=== PATIENT | male | born 1980 | race Asian ===

== ENCOUNTER 2018-09-10 01:10 | Emergency (ER) | payer OTHER ==
[~2018-09-10] VITALS: Ht 172.7 cm; Wt 68.7 kg
[2018-09-10 01:13] VITALS: BP 141/91; PULSE 83; RESP 18; Ht 172.7 cm; Wt 68.7 kg
[2018-09-10] MEDS ORDERED: FLUT9.9S NASAL (01:53)
[2018-09-10] MEDS ORDERED: ALBU8.5H8 INH ×2 (01:53→03:12)
--- NOTE | 2018-09-10 01:53 | ERD ---
ER Documentation Chief Complaint Chief Complaint C/O ON AND OFF FEVER, COUGH AND PHLEGM X1 MONTH HPI 28-year-old male presents to emergency department for complaints of on and off cough fever with phlegm for 1 month now. Has been having on and off wheezing, patient has history of asthma, has been using his inhaler, taking Flonase at home with mild relief. Patient does not any sick contacts. ROS All systems reviewed and are negative except as per history of present illness. Medications Home Meds Reported Medications Albuterol Sulfate* (Proair HFA*) Unknown Strength Hfa.aer.ad, INH Q4H PRN for WHEEZING AND SOB, #1 INHALER 09/10/18 Fluticasone Propionate (Flonase Allergy Relief) Unknown Strength [place].susp, NASAL BID, #1 BOTTLE TO EACH NOSTRIL 09/10/18 Allergies Allergies: Coded Allergies: No Known Allergy (Unverified , 09/10/18) PMhx/Soc Hx Respiratory Disorders: Yes (asthma) Hx Alcohol Use: No Hx Substance Use: No Hx Tobacco Use: No Smoking Status: Never smoker FmHx Family History: No diabetes, No coronary disease, No other Physical Exam Vitals Vital Signs Date Temp Pulse Resp B/P (MAP) Pulse Ox O2 O2 Flow FiO2 Time Delivery Rate 09/10/18 98.8 83 18 141/91 99 01:13 (108) Physical Exam GENERAL: The patient is well developed and appropriate for usual state of health, in no apparent distress. CHEST: Clear to auscultation bilaterally. There are no rales, wheezes or rhonchi. HEART: Regular rate and rhythm. No murmurs, clicks, rubs or gallops. No S3 or S4. ABDOMEN: Soft, nontender and nondistended. Good bowel sounds. No rebound or guarding. No gross peritonitis. No gross organomegaly or masses. No Ortiz sign or McBurney point tenderness. BACK: No midline or flank tenderness. EXTREMITIES: Equal pulses bilaterally. There is no peripheral clubbing, cyanosis or edema. No focal swelling or erythema. Full range of motion. Grossly neurovascularly intact. NEURO: Alert and oriented. Cranial nerves 2-12 intact. Motor strength in all 4 extremities with 5/5 strength. Sensation grossly intact. Normal speech and gait. SKIN: There is no apparent rash or petechia. The skin is warm and dry. HEMATOLOGIC AND LYMPHATIC: There is no evidence of excessive bruising or lymphedema. No gross cervical, axillary, or inguinal lymphadenopathy. Results 24 hrs PROCEDURE: XR Chest. CLINICAL INDICATION: Cough. TECHNIQUE: Single frontal chest x-ray. COMPARISON: None. FINDINGS: The cardiomediastinal silhouette is unremarkable. There is no congestive heart failure.. No focal infiltrate is seen. There is no pleural effusion. There is no pneumothorax. The osseous structures are unremarkable. IMPRESSION: 1. No active disease. RPTAT: [facility] .Julián Paez MD, MD Date Time Electronically viewed and signed by .Julián Paez MD, MD on 09/10/2018 02:58 .K/ CC: SP WILSON SALES TECHNICIAN [id number] Procedures/MDM Medical Decision Making: Patient symptoms are most likely consistent with acute bronchitis, which atypical in origin. There is low suspicion for Pneumonia at this time since patients lungs sounds are clear, patient O2 saturation is normal and patient doesnt show any respiratory distress. Patients chest xray doesnt show infiltrates or any other cardiopulmonary emergencies at this time. There is low suspicion for other cardiopulmonary emergencies at this time such as CHF, Pulmonary Embolism, Pneumothorax, Aortic Aneurysm or any other cardiopulmonary emergencies at this time. There is low suspicion for sepsis. Patient appears well and is hemodynamically stable. Fever is controlled with medicines. Disposition: Home. Condition: Stable Prescriptions: Azithromycin, ProAir, Prednisone, Guaifenasin DM, Zyrtec Instructions: Patient is advised to take medications as prescribed. Patient is advised to rest. Patient advised to increase fluid intake, do humidifier at home and if possible, do salt water gargles. Patient is advised that if symptoms are worse, shortness of breath, uncontrolled fever, stridor, vomiting, worst signs and symptoms to return to emergency department immediately. Otherwise, patient is advised to follow up with primary doctor in 5-7 days. Disclaimer: Inadvertent spelling and grammatical errors are likely due to EHR/dictation software use and do not reflect on the overall quality of patient care. Also, please note that the electronic time recorded on this note does not necessarily reflect the actual time of the patient encounter. Departure Diagnosis: Primary Impression: Acute bronchitis Bronchitis organism: unspecified organism Qualified Codes: J20.9 - Acute bronchitis, unspecified Condition: Stable Patient Instructions: Bronchitis, Antiobiotic Treatment (Adult) SP WILSON NP Sep 10, 2018 01:53
[2018-09-10] MEDS ORDERED: IBUP-1542 PO (03:12)
[2018-09-10] MEDS ORDERED: CETI10CA PO (03:12)
[2018-09-10] MEDS ORDERED: AZIT250T PO (03:12)
[2018-09-10] MEDS ORDERED: PRED20TA PO (03:12)
== END 2018-09-10 03:18 | disposition home or self-care (01) ==
LOC: FTE 01:10
DX: J20.9 Acute bronchitis, unspecified (principal); J45.909 Unspecified asthma, uncomplicated
CPT/HCPCS: 71045; Z7502

== ENCOUNTER 2018-11-11 15:15 | Emergency (ER) | payer OTHER ==
[~2018-11-11] VITALS: Ht 160 cm; Wt 68.5 kg
[~2018-11-11 15:15] MED LIST: ALBU8.5H8 INH; AZIT250T PO; CETI10CA PO; FLUT9.9S NASAL; IBUP-1542 PO; PRED20TA PO
[2018-11-11 15:17] VITALS: BP 126/78; PULSE 89; RESP 18; Ht 160 cm; Wt 68.5 kg
[2018-11-11] MEDS ORDERED: BENZ-6 PO (17:03)
--- NOTE | 2018-11-11 17:55 | ERD ---
ER Documentation Chief Complaint Chief Complaint cough x 1 week 2 days fever HPI Patient is a 38-year-old male with asthma who presents with a cough. The patient has had cough off and on which is been worsening. He reports a subjective fever. He has frontal headache. He said that he has had green phlegm and it lasted about 1 week. He started Zithromax on that was prescribed to him. His primary doctor is Dr. Owen. Upon review of old medical record the patient one previous visit in August for bronchitis. ROS All systems reviewed and are negative except as per history of present illness. Medications Home Meds Active Scripts Benzonatate* (Tessalon Perle*) 100 Mg Capsule, 100 MG PO Q8H PRN for COUGH, #30 CAP Prov:DAMION BARBER MD 11/11/18 Cetirizine Hcl* (Zyrtec*) 10 Mg Capsule, 10 MG PO DAILY, #30 TAB.CHEW Prov:SP WILSON NP 09/10/18 Azithromycin* (Zithromax*) 250 Mg Tablet, 250 MG PO .ZPACK DIRECTED, #6 TAB TAKE 500 MG (2 TABS) THE FIRST DAY THEN 250 MG (1 TAB) DAYS 2-5 Prov:SP WILSON NP 09/10/18 Ibuprofen* (Motrin*) 600 Mg Tab, 600 MG PO Q6H PRN for PAIN AND OR ELEVATED TEMP, #30 TAB Prov:SP WILSON NP 09/10/18 Prednisone* (Prednisone*) 20 Mg Tab, 60 MG PO DAILY for 5 Days, TAB Prov:SP WILSON NP 09/10/18 Albuterol Sulfate* (Proair HFA*) 8.5 Gm Hfa.aer.ad, 2 PUFF INH Q4H PRN for WHEEZING AND SOB, #1 INHALER Prov:SP WILSON NP 09/10/18 Reported Medications Albuterol Sulfate* (Proair HFA*) Unknown Strength Hfa.aer.ad, INH Q4H PRN for WHEEZING AND SOB, #1 INHALER 09/10/18 Fluticasone Propionate (Flonase Allergy Relief) Unknown Strength [place].susp, NASAL BID, #1 BOTTLE TO EACH NOSTRIL 09/10/18 Allergies Allergies: Coded Allergies: No Known Allergy (Unverified , 09/10/18) PMhx/Soc Hx Respiratory Disorders: Yes (asthma) Hx Alcohol Use: No Hx Substance Use: No Hx Tobacco Use: No Smoking Status: Never smoker FmHx Family History: No diabetes Physical Exam Vitals Vital Signs Date Temp Pulse Resp B/P (MAP) Pulse Ox O2 O2 Flow FiO2 Time Delivery Rate 11/11/18 97.7 89 18 126/78 97 15:17 (94) Physical Exam Const: No acute distress Head: Atraumatic Eyes: Normal Conjunctiva ENT: Normal External Ears, Nose and Mouth. Neck: Full range of motion. No meningismus. Resp: Clear to auscultation bilaterally Cardio: Regular rate and rhythm, no murmurs Abd: Soft, non tender, non distended. Normal bowel sounds Skin: No petechiae or rashes Back: No midline or flank tenderness Ext: No cyanosis, or edema Neur: Awake and alert Psych: Normal Mood and Affect Procedures/MDM Patient is a 38-year-old male who presents with a cough. He was prescribed Zithromax previously and started that on . Since he has already started the antibiotics he can continue these. It is possible that he has a viral illness however. The patient will be given a perception for Tessalon. The patient can return for any worsening symptoms. I doubt pneumonia, pneumothorax, or pulmonary embolism. Departure Diagnosis: Primary Impression: Cough Condition: Fair Patient Instructions: Cough, Chronic, Uncertain Cause, (Adult) Additional Instructions: Call your primary care doctor TOMORROW for an appointment during the next 1 WEEK.Tell the shaper hand that you were referred from this facility.See the doctor sooner or return here if your condition worsens before your appointment time. DAMION BARBER MD Nov 11, 2018 17:55
== END 2018-11-11 17:18 | disposition home or self-care (01) ==
LOC: FTE 15:15
DX: R05 Cough (principal); J45.909 Unspecified asthma, uncomplicated
CPT/HCPCS: 99283